=== PATIENT | male | born 1995 | race Caucasian/White ===

== ENCOUNTER 2022-10-09 16:54 | Emergency (ER) | payer MEDICAID ==
[~2022-10-09] VITALS: Ht 167.6 cm; Wt 75.0 kg
[2022-10-09 17:06] VITALS: BP 162/88
== END 2022-10-09 17:23 | disposition left against medical advice (07) ==
LOC: ER 17:07
DX: Z53.21 Procedure and treatment not carried out due to patient leaving prior to being seen by health care provider (principal)